=== PATIENT | male | born 2000 | race Caucasian/White ===

== ENCOUNTER 2021-11-09 13:19 | Emergency (ER) | payer SELFPAY ==
[~2021-11-09] VITALS: Ht 182.9 cm; Wt 63.5 kg
[2021-11-09] MEDS ORDERED: IBUP800T27 PO (14:06)
[2021-11-09] MEDS ORDERED: ONDANSETRON ODT 4 MG TAB PO ONE (14:15)
[2021-11-09] MEDS ORDERED: IBUPROFEN 800 MG TAB PO ONE (14:15)
[2021-11-09 14:29] VITALS: BP 113/80
[2021-11-09] MEDS ORDERED: ONDA-144 PO (14:29)
== END 2021-11-09 14:40 | disposition home or self-care (01) ==
LOC: ER 13:19
DX: K04.7 Periapical abscess without sinus (principal)
CPT/HCPCS: 99283; Q0162